=== PATIENT | male | born 1955 | race Caucasian/White ===

== ENCOUNTER 2018-03-19 07:07 | Day surgery (SDC) | payer OTHER ==
[~2018-03-19] VITALS: Ht 177.8 cm; Wt 107.2 kg
[2018-03-19] MEDS ORDERED: LOVA40 (07:42)
[2018-03-19] MEDS ORDERED: CHOL10002 (07:42)
[2018-03-19] MEDS ORDERED: BETA.05TCA TOP (07:43)
[2018-03-19] MEDS ORDERED: DOCU100 PO (07:44)
--- NOTE | 2018-03-19 08:33 | NUR ---
03/19/18 0833 Ny Bearden PT. SATS RANGING FROM 89% ON RA UP TO 95% ON RA. PT. VERBALIZES SOMETIMES HE CAN GET SOB WHEN JUST WATCHING T.V. & PUTS A PILLOW UNDER HIS CHIN TO RAISE HIS CHIN UP WHICH HE VERBALIZES HELPS. PT. DENIES SLEEP APNEA BUT DOES VERBALIZE THAT HE SNORES & SOMETIMES WAKES UP FEELING LIKE HE NEEDS TO TAKE A DEEP BREATH.
--- NOTE | 2018-03-19 09:01 | NUR ---
03/19/18 0901 Ny Bearden WATER FLUSH USED DURING COLONOSCOPY.
== END 2018-03-19 09:31 | disposition home or self-care (01) ==
LOC: ORSCSDS 07:07
PROVIDERS: Internal Medicine Gastroenterology
PROC: 0DJD8ZZ Inspection of Lower Intestinal Tract, Via Natural or Artificial Opening Endoscopic (ICD-10-PCS; principal; 2018-03-19 08:30)
DX: Z12.11 Encounter for screening for malignant neoplasm of colon (principal); K64.8 Other hemorrhoids; K57.30 Diverticulosis of large intestine without perforation or abscess without bleeding; E78.00 Pure hypercholesterolemia, unspecified; I10 Essential (primary) hypertension; E66.01 Morbid (severe) obesity due to excess calories; Z68.30 Body mass index [BMI] 30.0-30.9, adult; Z79.899 Other long term (current) drug therapy
CPT/HCPCS: J0330; J1980; J2405; J7120

== ENCOUNTER 2024-07-15 06:38 | Day surgery (SDC) | payer MEDICARE ==
[~2024-07-15] VITALS: Ht 177.8 cm; Wt 113.6 kg
[~2024-07-15 06:38] MED LIST: BETA.05TCA TOP; CHOL10002; DOCU100 PO; LOVA40; OMEP20ER PO; SULTRIDS PO; TAMS.4ER PO
[2024-07-15] MEDS ORDERED: LOVASTATIN40 MG (06:57)
[2024-07-15] MEDS ORDERED: ORGOVYX120 MG (06:57)
[2024-07-15] MEDS ORDERED: propofoL 50 ML IV ONE (07:36)
[2024-07-15] MEDS ORDERED: Lactated Ringer's 1,000 ML IV ONE ×2 (07:36→07:58)
[2024-07-15 08:44] VITALS: BP 109/68
== END 2024-07-15 08:58 | disposition home or self-care (01) ==
LOC: ORSCSDS 06:38
PROVIDERS: Internal Medicine Gastroenterology
PROC: 0DJ08ZZ Inspection of Upper Intestinal Tract, Via Natural or Artificial Opening Endoscopic (ICD-10-PCS; principal; 2024-07-15 08:00)
DX: R13.10 Dysphagia, unspecified (principal); K21.9 Gastro-esophageal reflux disease without esophagitis; K22.10 Ulcer of esophagus without bleeding; K44.9 Diaphragmatic hernia without obstruction or gangrene; I10 Essential (primary) hypertension; E78.5 Hyperlipidemia, unspecified; C61 Malignant neoplasm of prostate; C79.51 Secondary malignant neoplasm of bone; Z79.899 Other long term (current) drug therapy
CPT/HCPCS: J2704; J7120